=== PATIENT | female | born 1935 | race Caucasian/White ===

== ENCOUNTER 2017-06-05 10:51 | Outpatient (CLI) | payer MEDICARE ==
--- OUTSIDE RECORDS SUMMARY | 2017-06-05 10:54 | XMS | Clinical Summary ---
:1935 Author Organization [facility] Address [address] [place] [address] Phone Care Team Providers Name Role Phone , Primary Care Provider Unavailable Allergies Not on File Current Medications Not on file Active Problems Not on file Social History Tobacco Use Types Packs/Day Years Used Date Never Assessed Sex Assigned at Date Recorded Not on file Last Filed Vital Signs Not on file Plan of Treatment Not on file Results Not on filefrom Last 3 Months
[2017-06-05 12:48] LABS: Anion Gap 18 mmol/L (10-20); BUN (Urea Nitrogen) 16 mg/dL (9.8-20.1); Calc. Creatinine Clearance 0 mL/min (70-130); Carbon Dioxide 18 mmol/L (23-31); Chloride 103 mmol/L (98-107); Estimated GFR-MDRD 57
--- NOTE | 2017-06-08 06:47 | EKG ---
Test Reason : Blood Pressure : / mmHG Vent. Rate : 070 BPM Atrial Rate : 070 BPM P-R Int : 120 ms QRS Dur : 090 ms QT Int : 400 ms P-R-T Axes : 040 -64 064 degrees QTc Int : 432 ms Normal sinus rhythm Low voltage QRS limb leads. Left anterior fascicular block Nonspecific T wave abnormality Abnormal ECG When compared with ECG of 02-JUN-2015 09:15, No significant change was found Confirmed by MELLO STEIN ([id number]) on 06/08/2017 6:46:52 AM Referred By: LILA Confirmed By:MELLO STEIN
== END 2017-06-05 10:52 | disposition home or self-care (01) ==
LOC: LABBT 10:51
PROVIDERS: ATTEND Surgery
DX: Z01.818 Encounter for other preprocedural examination (principal); C56.9 Malignant neoplasm of unspecified ovary
CPT/HCPCS: 80048; 93005; 93010

== ENCOUNTER 2017-06-06 11:22 | Day surgery (SDC) | payer MEDICARE ==
[2017-06-05 11:09] VITALS: BMI 23.2
--- OUTSIDE RECORDS SUMMARY | 2017-06-06 11:25 | XMS | Clinical Summary ---
:1935 Author Organization [facility] Address [address] [place] [address] Phone Care Team Providers Name Role Phone [...]
[2017-06-06 11:55] LABS: #Basophils 0.1 thou/uL (0.0-0.2); #Eosinphils 0.1 thou/uL (0.0-0.7); #Lymphocytes 2.1 thou/uL (1.20-3.40); #Monocytes 0.9 thou/uL (0.11-0.59); #Neutrophils 7.8 thou/uL (1.40-6.50); %Basophils 0.6 % (0.0-1.0); %Eosinophils 1.4 % (0.0-10.0); %Lymphocytes 18.8 % (21.0-51.0); %Monocytes 7.8 % (0.0-10.0); Hematocrit 42.8 % (36.0-47.0); Red Blood Cell (RBC) Count 4.49 mill/uL (4.20-5.40)
[2017-06-06] MEDS ORDERED: Bupivacaine HCl 0.5%/Epinephrine 1:200,000/PF 30 ml Vial ONE (13:42)
[2017-06-06] MEDS ORDERED: PHENYLEPHRINE-NS 100 MCG/ML 10 ML SYRINGE ONE ×2 (13:46→14:13)
[2017-06-06] MEDS ORDERED: ePHEDrine/0.9% NaCl/PF SYRINGE 50 mg/10 ml ONE ×2 (13:46→14:13)
[2017-06-06] MEDS ORDERED: Ondansetron HCl/PF 4 MG/2 ML Vial ONE ×2 (13:49→14:13)
--- NOTE | 2017-06-06 17:03 | RAD ---
AP VIEW OF THE CHEST 06/06/17 INDICATION: Check placement of Mediport. COMPARISON: None. FINDINGS: There is a left subclavian chest wall port projecting in the region of the SVC. No definite pneumoth orax is evident. There is mild suspected subsegmental atelectasis within both lower lobes. Heart siz e and pulmonary vasculature are within normal limits. IMPRESSION: 1. Left chest wall Mediport. 2. No pneumothorax. 3. Mild bibasilar atelectasis. POS: [facility]
--- NOTE | 2017-06-09 17:28 | PDOC.OP ---
Operative Note - Operative Note Operative Note: PROCEDURE: Left subclavian MediPort placement with fluoroscopic guidance SURGEON: Luca Baron M.D. DATE OF PROCEDURE: 06/06/2017 PREOPERATIVE DIAGNOSIS: Ovarian cancer POSTOPERATIVE DIAGNOSIS: Ovarian cancer HISTORY: Patient is diagnosed with ovarian cancer. Chemotherapy has been recommended and the oncologist has requested MediPort placement for this. OPERATIVE PROCEDURE IN DETAIL: After informed consent was obtained and appropriate preoperative antibiotics were administered, the patient was taken to the operating room and placed in supine position and monitored anesthesia care was administered. The patient was then placed in Trendelenburg position and the subclavian vein accessed easily on the first attempt with excellent flow of dark venous non-pulsatile blood. A wire threaded easily and was confirmed to be in the superior vena cava by fluoroscopy. Additional local anesthesia was infused to the skin and subcutaneous tissues lateral and inferior to the access site. The skin incision was extended from the wire laterally and a subcutaneous pocket developed inferiorly. A Mediport was obtained and confirmed to fit in the subcutaneous pocket. This was secured inferiorly to the pectoralis fascia with a Prolene suture, which was clamped, but not tied. The dilator and sheath were then placed over the wire and the dilator and wire removed leaving the sheath in place. The clamped MediPort tubing was tunneled through the sheath, which was then split and removed leaving the MediPort tubing in place. The tubing was adjusted until the tip was confirmed by fluoroscopy to be in the superior vena cava just above the atrium. The tubing was clamped at the skin level and cut and the tubing secured to the port, which was then placed in the subcutaneous pocket. The previously placed suture was secured and two additional sutures were placed to fix the port in place within the pocket. The port was aspirated with the Amanda needle and had excellent flow of dark venous non-pulsatile blood and easily flushed without resistance. The subcutaneous tissues were closed with a running Monocryl suture, following which the skin was closed with a running subcuticular Monocryl suture. Dermabond dressings were placed and the hub was again accessed through the skin and confirmed to easily aspirate and easily flush. The course of the catheter was confirmed by fluoroscopy to be smooth with the tip appropriately located in the superior vena cava. The patient was taken her back to the day stay unit in good condition. Estimated blood loss was minimal. There were no complications. There were no specimens.
== END 2017-06-06 16:00 | disposition home or self-care (01) ==
LOC: SDC 11:22
PROVIDERS: ATTEND Surgery
PROC: 05H633Z Insertion of Infusion Device into Left Subclavian Vein, Percutaneous Approach (ICD-10-PCS; principal; 2017-06-06)
PROC: B517ZZA Fluoroscopy of Left Subclavian Vein, Guidance (ICD-10-PCS; 2017-06-06)
DX: C56.9 Malignant neoplasm of unspecified ovary (principal); I10 Essential (primary) hypertension; F32.9 Major depressive disorder, single episode, unspecified; G62.9 Polyneuropathy, unspecified; H54.62 Unqualified visual loss, left eye, normal vision right eye; M19.90 Unspecified osteoarthritis, unspecified site; M41.9 Scoliosis, unspecified; Z88.0 Allergy status to penicillin; Z88.2 Allergy status to sulfonamides; Z88.5 Allergy status to narcotic agent; Z88.1 Allergy status to other antibiotic agents; Z90.710 Acquired absence of both cervix and uterus; Z87.891 Personal history of nicotine dependence; Z79.899 Other long term (current) drug therapy; Z96.1 Presence of intraocular lens; Z96.652 Presence of left artificial knee joint
CPT/HCPCS: 36561; 71010; 77001; 85025; C1788; 36415; J0670; J1642; J2405